=== PATIENT | male | born 1995 | race Caucasian/White ===

== ENCOUNTER 2020-03-29 08:35 | Emergency (ER) | payer BC, SELFPAY ==
--- OUTSIDE RECORDS SUMMARY | 2020-03-29 08:57 | XMS REPORT | Continuity of Care Document ---
:1995 Author Organization [facility] t Address [address] [place] [address] Dr. Calvillo. [address] [place] [address] Care Team Providers Name Role Phone Arnoldo BARRERA Attending Clinician 2, Lab Attending Clinician Unavailable Problems This patient has no known problems. Allergies, Adverse Reactions, Alerts This patient has no known allergies or adverse reactions. Medications This patient has no known medications. Procedures This patient has no known procedures. 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
--- OUTSIDE RECORDS SUMMARY | 2020-03-29 08:57 | XMS REPORT | Summary of Care ---
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 tabletIndications: STD exposure documented as of this encounter (statuses as of 02/19/2020) Active Problems Not on filedocumented as of this encounter (statuses as of 02/19/2020) Social History Tobacco Use Types Packs/Day Years Used Date Never Smoker Smokeless Tobacco: Current User Alcohol Use Drinks/Week oz/Week Comments Yes 12 Cans of beer 12.0 Sex Assigned at Date Recorded Not on file COVID-19 Exposure Response Date Recorded In the last month, have you been in contact with No / Unsure 02/19/2020 11:11 AM CDT someone who was confirmed or suspected to have Coronavirus / COVID-19? documented as of this encounter Last Filed Vital Signs Not on filedocumented in this encounter Nursing Notes Florina Randolph - 02/19/2020 11:30 AM CDT Venipuncture collection performed by clean technique on the right anticubitus. Total of 1 attempts were made. Slight pressure and a bandage/dressing were applied to the site(s). The patient experiencedno complications. The following specimens were processed according to instructions and sent to [facility] laboratories per lab order on 02/19/20: LT BLUE SST 1 RED 1 LAV PPT DK GREEN (LiHep) DK GREEN (SodH) LLAMAS DK BLUE (K2) DK BLUE (S) ACD Blood Culture NIPT/NTD Patient has been identified by name and was provided with cup, antiseptic towelette, and clean catchinstructions. 2 urine specimen(s) sent. Unpreserved 2 Urine Culture Aptima tube Other urine documented in this encounter Plan of Treatment Date Type Specialty Care Team Description 04/01/2020 Office Visit Family Medicine Carson Mclaughlin MD [address] [place] [address] [phone] Name Type Priority Associated Diagnoses Date/Ti me ADC OR MIGEL ONLY - RPR LAB Routine STD exposure 11:35 AM CDT GC & CHLAMYDIA AMPLIFIED LAB Routine STD exposure 12/2019 11:36 AM CDT ASSAY Health Maintenance Due Date Last Done Comments VARICELLA VACCINES (1 of 2 - 1998 2-dose childhood series) MENINGOCOCCAL B VACCINES (1 of 2 - 2007 Risk Bexsero 2-dose series) HPV VACCINES (1 - Male 2-dose 2008 series) DTaP,Tdap,and Td Vaccines (1 - 2016 Tdap) INFLUENZA VACCINE (#1) 2020 Depression Screening 02/18/2021 02/19/2020 MENINGOCOCCAL VACCINE Aged Out No longer eligible based on patient's age to complete this topic PNEUMOCOCCAL 0-64 YEARS COMBINED Aged Out No longer eligible based on SERIES patient's age to complete this topic documented as of this encounter Procedures Procedure Name Priority Date/Time Associated Comments Diagnosis URINALYSIS Routine 02/19/2020 11:36 AM Urethritis Results for this CDT procedure are i n the results section. HIV 1/2 AG-AB WITH Routine 02/19/2020 11:35 AM STD exposure Re sults for this REFLEX CDT procedure are i n the results section. documented in this encounter Results URINALYSIS (02/19/2020 11:36 AM CDT) Pathologist Sig nature APPEARANCE Clear Clear [facility] COLOR Yellow Yellow [facility] PH 7.0 4.8 - 8.0 [facility] SP GRAVITY 1.028 1.003 - 1.030 [facility] GLU U QUAL Normal Normal [facility] BLOOD Negative Negative [facility] KETONES 5 mg/dL (A) Negative [facility] PROTEIN Negative Negative [facility] UROBILIN 2.0 mg/dL (A) Normal [facility] BILIRUBIN Negative Negative [facility] NITRITE Negative Negative [facility] LEUK ELEANOR Negative Negative [facility] RBC/HPF <1 0 - 3 HPF [facility] WBC/HPF 1 0 - 5 HPF [facility] BACTERIA Negative Negative [facility] MUCOUS Slight (A) Negative LPF [facility] Specimen Urine - URINE, CLEAN CATCH Performing Organization Address [facility] Phone Number [facility] CLIA: [id number] [place], [place] [id number] LAB[address] HIV 1/2 AG-AB WITH REFLEX (02/19/2020 11:35 AM CDT) Pathologist Sig nature HIV 1/2 Ag-Ab with Negative Negative [facility] Reflex [facility] HIV Semi-quantitative 0.10 [facility] Specimen Blood Narrative Performed At Non-reactive for HIV-1 antigen and HIV-1/HIV-2 [facility] antibodies. No laboratory evidence of HIV infection. Repeat in 2-4 weeks if acute HIV infection is suspected. Performing Organization Address City[facility] Phone Number [facility] CLIA: [id number] [place] [address] documented in this encounter Visit Diagnoses Diagnosis STD exposure Urethritis Urethritis, unspecified documented in this encounter Additional Health Concerns Infection Onset Date Last Indicated Resolved Time COVID-19 Confirmed 02/05/2020 02/05/2020 documented as of this encounter Insurance Payer Benefit Plan / Subscriber ID Effective Dates Phone Addre ss Type Group [facility] [id number] 2019-Yisel O/ PPO/[facility] PPO t S documented as of this encounter
--- OUTSIDE RECORDS SUMMARY | 2020-03-29 08:57 | XMS REPORT | Summary of Care ---
:1995 Author Organization [facility] Address [address] [place] [address] Care Team Providers Name Role Phone Unavailable Primary Care Provider Unavailable Reason for Visit Reason Comments Results Encounter Details Date Type Department Care Team Description 02/06/2020 Telephone [facility] Cale Stoner MD Results 301 [facility] 301 [place] [address] [place], [place] [id number] Allergies No Known Allergiesdocumented as of this encounter (statuses as of 02/06/2020) Medications No known medicationsdocumented as of this encounter (statuses as of 02/06/2020) Active Problems Not on filedocumented as of this encounter (statuses as of 02/06/2020) Social History Tobacco Use Types Packs/Day Years Used Date Never Smoker Smokeless Tobacco: Current User Alcohol Use Drinks/Week oz/Week Comments Yes 12 Cans of beer 12.0 Sex Assigned at Date Recorded Not on file Job Start Date Occupation Industry Not on file Not on file Not on file Travel History Travel Start Travel End No recent travel history available. documented as of this encounter Last Filed Vital Signs Not on filedocumented in this encounter Plan of Treatment Health Maintenance Due Date Last Done Comments VARICELLA VACCINES (1 of 2 - 2-dose 1998 childhood series) MENINGOCOCCAL B VACCINES (1 of 2 - 2007 Risk Bexsero 2-dose series) DTaP,Tdap,and Td Vaccines (1 - 2008 Tdap) Depression Screening 2009 INFLUENZA VACCINE (#1) 2020 HPV VACCINES Aged Out No longer eligib le based on patient's age to complete this topic MENINGOCOCCAL VACCINE Aged Out No longer eligible based on patient's age to complete this topic PNEUMOCOCCAL 0-64 YEARS COMBINED Aged Out No longer eligible based on SERIES patient's age to complete this topic documented as of this encounter Results Not on filedocumented in this encounter Additional Health Concerns Infection Onset Date Last Indicated Resolved Time COVID-19 Rule Out 02/05/2020 02/05/2020 02/06/2020 2: 22 PM CDT COVID-19 Confirmed 02/05/2020 02/05/2020 documented as of this encounter Insurance Payer Benefit Plan / Subscriber ID Effective Dates Phone Addre ss Type Group [facility] [id number] 2019-Yisel O/ PPO/[facility] PPO t S documented as of this encounter
--- OUTSIDE RECORDS SUMMARY | 2020-03-29 08:57 | XMS REPORT | Summary of Care ---
:1995 Author Organization [facility] Address [address] [place] [address] Care Team Providers Name Role Phone Unavailable Primary Care Provider Unavailable Reason for Visit Reason Comments Exposure Encounter Details Date Type Department Care Team Description 02/05/2020 Laboratory Only [facility] Family Chele Land, GIN OPERATOR [address] [place] [phone] Suspected Covid-19 [facility], Adc Fam Pob I Virus Infection [address] [place] [address] (Primary D x) [place] [address] Allergies No Known Allergiesdocumented as of this encounter (statuses as of 02/05/2020) Medications No known medicationsdocumented as of this encounter (statuses as of 02/05/2020) Active Problems Not on filedocumented as of this encounter (statuses as of 02/05/2020) Social History Tobacco Use Types Packs/Day Years [...] filedocumented in this encounter Plan of Treatment Name Type Priority Associated Diagnoses Order S chedule COVID-19 (PCR MOLECULAR LAB Routine Suspected Covid-1 9 Virus Expected: 02/05/2020, TESTING) Infection Expires: 2020 Health Maintenance Due Date Last Done Comments [...] Results Not on filedocumented in this encounter Visit Diagnoses Diagnosis Suspected Covid-19 Virus Infection - Olive umana documented in this encounter Additional Health Concerns Infection Onset Date Last Indicated Resolved Time COVID-19 Rule Out 02/05/2020 02/05/2020 documented as of this encounter Insurance Payer Benefit Plan / Subscriber ID Effective Dates Phone Addre ss Type Group [facility] [id number] [facility] P[facility] t S documented as of this encounter
--- OUTSIDE RECORDS SUMMARY | 2020-03-29 08:57 | XMS REPORT | Summary of Care ---
:1995 Author Organization [facility] Address [address] [place] [address] Care Team Providers Name Role Phone Carson Mclaughlin MD Primary Care Provider Reason for Visit Reason Comments Results Encounter Details Date Type Department Care Team Description 02/23/2020 Telephone [facility] Family Medicine Carson Mitchell MD Results - [address] [place] [address] [place] [address] [phone] Allergies No Known Allergiesdocumented as of this encounter (statuses as of 02/23/2020) Medications Medication Sig Dispensed Refills Start Date End Date Status azithromycin Take 4 tablets by 4 tablet 0 02/19/2020 Active (ZITHROMAX) 500 mg mouth daily. tabletIndications: STD exposure documented as of this encounter (statuses as of 02/23/2020) Active Problems Not on filedocumented as of this encounter (statuses as of 02/23/2020) Social History Tobacco Use Types Packs/Day Years [...] Signs Not on filedocumented in this encounter Miscellaneous Notes Telephone Encounter - Karlie Whitfield LVN - 02/23/2020 12:43 PM CDTPatient notified and verbalized understanding. elephone Encounter - Sera Fernandez - 02/23/2020 8:11 AM CDTPatient is calling and is requesting to speak to the nurse in regards to his test results, please call patient back in regards to this encounter. documented in this encounter Plan of Treatment Date Type Specialty Care Team Description 04/01/2020 Office Visit Family Medicine Carson Mclaughlin MD [address] [place] [phone] Health Maintenance Due Date Last Done Comments [...] Effective Dates Phone Addre ss Type Group [facility] [id number] 2019-Yisel HMO/ PPO/[facility] PPO t S documented as of this encounter
--- OUTSIDE RECORDS SUMMARY | 2020-03-29 08:57 | XMS REPORT | Summary of Care ---
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
--- OUTSIDE RECORDS SUMMARY | 2020-03-29 08:57 | XMS REPORT | Summary of Care ---
:1995 Author Organization [facility] - Health Address [address] [place] [address] Care Team Providers Name Role Phone Carson Mclaughlin MD Primary Care Provider Encounter Details Date Type Department Care Team Description 02/19/2020 Orders Only [facility] Doctor Unassigned, No 301 [facility] [place] [address] 301 [place] [address] Allergies No Known Allergiesdocumented as of this encounter (statuses as of 02/19/2020) Medications No known medicationsdocumented as of this [...] in contact with No / Unsure 02/19/2020 10:57 AM CDT someone who was confirmed or [...] VACCINES (1 - Male 2-dose 2008 series) Depression Screening 2009 DTaP,Tdap,and Td Vaccines (1 - 2016 Tdap) INFLUENZA VACCINE (#1) 2020 MENINGOCOCCAL VACCINE Aged Out No longer eligible based on patient's age to complete this topic PNEUMOCOCCAL 0-64 YEARS COMBINED Aged Out No longer eligible based on SERIES patient's age to complete this topic documented as of this encounter Procedures Procedure Name Priority Date/Time Associated Comments Diagnosis CONSENT TO CONTACT Routine 02/19/2020 11:01 AM Re sults for this FOR VOLUNTARY CDT procedure are in RESEARCH the results section. CONSENT/REFUSAL FOR Routine 02/19/2020 11:01 AM DIAGNOSIS AND CDT TREATMENT ASSIGNMENT OF Routine 02/19/2020 11:01 AM BENEFITS CDT documented in this encounter Results CONSENT TO CONTACT FOR VOLUNTARY RESEARCH (02/19/2020 11:01 AM CDT) Pathologist Sig nature Consent To Contact For Voluntary Yes HIM Research Specimen Performing Organization Address City/State/Zipcode Phone Number HIM documented in this encounter Additional Health Concerns Infection Onset Date Last Indicated Resolved Time COVID-19 Confirmed 02/05/2020 02/05/2020 documented as of this encounter Insurance Payer Benefit Plan / Subscriber ID Effective Dates Phone Addre ss Type Group [facility] [id number] 2019-iYsel HMO/ PPO/[facility] PPO t S documented as of this encounter
--- OUTSIDE RECORDS SUMMARY | 2020-03-29 08:57 | XMS REPORT | Summary of Care ---
:1995 Author Organization [facility] Address [address] [place] [address] Care Team Providers Name Role Phone Carson Mclaughlin MD Primary Care Provider Reason for Visit Reason Comments STD Testing exposure to chlamydia Encounter Details Date Type Department Care Team Description 02/19/2020 Office Visit [facility] Pediatric Lisseth Mclaughlin MD Urethritis (Primary Dx); and Adult Primary [address] [facility] STD expo [facility] [address] [place] [address], [address] [address] [place], [place] [phone] [address] [phone] Allergies No Known Allergiesdocumented as of this [...] of this encounter Last Filed Vital Signs Vital Sign Reading Time Taken Comments Blood Pressure 110/70 02/19/2020 11:04 AM CDT Pulse - - Temperature - - Respiratory Rate - - Oxygen Saturation - - Inhaled Oxygen Concentration - - Weight 100.2 kg (221 lb) 02/19/2020 11:04 AM CDT Height - - Body Mass Index - - documented in this encounter Progress Notes Carson Mclaughlin MD - 02/19/2020 11:00 AM CDT Cc: STD exposure Chief Complaint Patient presents with STD Testing exposure to chlamydia Shantanu Falcon is a 24 year old male. Here for std exposure Allergies Shantanu has No Known Allergies. Medications No outpatient medications prior to visit. No facility-administered medications prior to visit. Histories No past medical history on file. No past surgical history on file. Social History Socioeconomic History Marital status: Single Spouse name: Not on file Number of children: Not on file Years of education: Not on file Highest education level: Not on file Occupational History Not on file Social Needs Financial resource strain: Not on file Food insecurity Worry: Not on file Inability: Not on file Transportation needs Medical: Not on file Non-medical: Not on file Tobacco Use Smoking status: Never Smoker Smokeless tobacco: Current User Substance and Sexual Activity Alcohol use: Yes Alcohol/week: 12.0 standard drinks Types: 12 Cans of beer per week Drug use: No Sexual activity: Yes Partners: Female control/protection: None Lifestyle Physical activity Days per week: Not on file Minutes per session: Not on file Stress: Not on file Relationships Social connections Talks on phone: Not on file Gets together: Not on file Attends restorationism service: Not on file Active member of club or organization: Not on file Attends meetings of clubs or organizations: Not on file Relationship status: Not on file Intimate partner violence Fear of current or ex partner: Not on file Emotionally abused: Not on file Physically abused: Not on file Forced sexual activity: Not on file Other Topics Concern Not on file Social History Narrative Not on file Family History Problem Relation Age of Onset No Significant Medical Problems Mother No Significant Medical Problems Father Review of Systems Vital Signs BP 110/70 | Wt 221 lb (100.2 kg) Physical Exam Vitals signs reviewed. Constitutional: Appearance: Normal appearance. HENT: Head: Normocephalic and atraumatic. Nose: Nose normal. Mouth/Throat: Mouth: Mucous membranes are dry. Neck: Musculoskeletal: Normal range of motion. Cardiovascular: Rate and Rhythm: Normal rate and regular rhythm. Pulses: Normal pulses. Pulmonary: Effort: Pulmonary effort is normal. Breath sounds: Normal breath sounds. Musculoskeletal: Normal range of motion. Skin: General: Skin is warm. Neurological: Mental Status: He is alert. Assessment/Plan STD exposure, UA, assay, HIV, RPR This visit did not involve counseling and coordination that comprised more than 50% of the visit time. documented in this encounter Plan of Treatment Name Type Priority Associated Diagnoses Order S chedule ADC OR MIGEL ONLY - RPR LAB Routine STD exposure Ex pected: 02/19/2020, Expires: 2020 HIV 1/2 AG-AB WITH REFLEX LAB Routine STD exposure Ex pected: 02/19/2020, Expires: 2020 GC & CHLAMYDIA AMPLIFIED LAB Routine STD exposure Exp ected: 02/19/2020, ASSAY Expires: 2020 URINALYSIS LAB Routine Urethritis Expected: 02/18, Expires: 2020 Health Maintenance Due Date Last [...] filedocumented in this encounter Visit Diagnoses Diagnosis Urethritis - Primary Urethritis, unspecified STD exposure documented in this encounter Additional Health Concerns Infection Onset Date Last Indicated Resolved Time COVID-19 Confirmed 02/05/2020 02/05/2020 documented as of this encounter Insurance Payer Benefit Plan / Subscriber ID Effective Dates Phone Addre ss Type Group [facility] [id number] 2019-Yisel HMO/ PPO/[facility] PPO t S documented as of this encounter"
--- OUTSIDE RECORDS SUMMARY | 2020-03-29 08:57 | XMS REPORT | Summary of Care ---
:1995 Author Organization [facility] - Health Address [address] [place] [address] Care Team Providers Name Role Phone Unavailable Primary Care Provider Unavailable Encounter Details Date Type Department Care Team Description 02/05/2020 Letter (Out) [facility] [employer] Message s Doctor Unassigned, No [address] [facility] [place] [address] 301 [facility] [phone] [place] [address] Allergies No Known Allergiesdocumented as of this [...] 2020 HPV VACCINES Aged Out No longer [place] based on patient's age to complete this topic MENINGOCOCCAL VACCINE Aged Out No longer eligible based on patient's age to complete this topic PNEUMOCOCCAL 0-64 YEARS COMBINED Aged Out No longer eligible based on SERIES patient's age to complete this topic documented as of this encounter Results Not on filedocumented in this encounter Insurance Payer Benefit Plan / Subscriber ID Effective Phone Address T ype Group Dates [facility] [id number] 2014-Pre [phone] [place] [address] [place] PPO/POS sent [phone] [place] [address] [facility] [id number] Effective for HMO/PP O/ [facility] PPO all dates POS documented as of this encounter
--- OUTSIDE RECORDS SUMMARY | 2020-03-29 08:57 | XMS REPORT | Summary of Care ---
:1995 Author Organization [facility] Address [address] [place] [address] Care Team Providers Name Role Phone Carson Mclaughlin MD Primary Care Provider Reason for Visit Reason Comments STD Testing exposure to chlamydia Encounter Details Date Type Department Care Team Description 02/19/2020 Office Visit [facility] Pediatric Lisseth Mclaughlin MD Urethritis (Primary Dx); and Adult Primary [address] [facility] STD expo [facility] [address] [place] [place] [address], [address] [address] [place], [place] [phone] [address] [phone] Allergies No Known Allergiesdocumented as of this [...] file Gets together: Not on file Attends restorationist service: Not on file Active member of [...] Addre ss Type Group [facility] [id number] 2019-Yisel HMO/ PPO/[facility] PPO t S documented as of this encounter"
[2020-03-29 09:49] LABS: Absolute Lymphocytes (CBC) 1.2 K/uL (0.7-4.9); Hematocrit 42.6 % (39.6-49.0); Lymphocytes % 18.2 % (15.3-44.8); MPV 9.2 fL (7.6-11.3); RBC Red Blood Cell Count 4.82 M/uL (4.33-5.43)
[2020-03-29] MEDS ORDERED: NA CHLORIDE 0.9% 1,000 ML ONE (10:02)
[2020-03-29 10:15] LABS: ALT/SGPT 33 U/L (12-78); AST/SGOT 15 U/L (15-37); Albumin 3.9 g/dL (3.4-5.0); Alkaline Phosphatase 68 U/L (45-117); BUN Blood Urea Nitrogen 11 mg/dL (7-18); Bicarbonate 29 mmol/L (21-32); Bilirubin Direct 0.1 mg/dL (0-0.2); Bilirubin Total 0.4 mg/dL (0.2-1.0); Glucose Level 89 mg/dL (74-106); Magnesium 2.1 mg/dL (1.8-2.4); Protein, Total 7.5 g/dL (6.4-8.2); Sodium Level 140 mmol/L (136-145); Troponin (Emerg Dept Use Only) < 0.02 ng/mL (0.0-0.045)
--- NOTE | 2020-03-29 10:44 | RAD REPORT ---
EXAM DESCRIPTION: Jocelyne Single View03/29/2020 10:04 am CLINICAL HISTORY: Palpitations COMPARISON: none FINDINGS: The lungs appear clear of acute infiltrate. The heart is normal size IMPRESSION: No acute abnormalities displayed
[2020-03-29 10:51] LABS: Urine Blood NEGATIVE (NEG); Urine Glucose NEGATIVE (NEG); Urine Protein NEGATIVE (NEG); Urine pH 7.5 (5.0-7.0)
--- NOTE | 2020-03-29 10:58 | EDPHYS ---
Physician Documentation [facility] Name: Shantanu Falcon Age: 24 yrs Sex: Male : 1995 Arrival Date: 03/29/2020 Time: 08:36 Bed 20 Private MD: Carson Mclaughlin S ED Physician Nicho Issa HPI: 03/29 10:29 This 24 yrs old Male presents to ER via Ambulatory with complaints of pm1 Palpitations. 10:29 The patient presents with a history of heart racing. Context: The symptoms occur at pm1 rest. 10:29 Onset: The symptoms/episode began/occurred 1 week(s) ago. Duration: The patient or pm1 guardian reports multiple episodes. Modifying factors: The symptoms are aggravated by nothing. The symptoms are alleviated by nothing. Associated signs and symptoms: Pertinent positives: tunnel vision with palpitations, Pertinent negatives: chest pain, cough, fever, SOB. Severity of symptoms: in the emergency department the symptoms have resolved. The patient has not experienced similar symptoms in the past. Patient drinks multiple energy drinks daily. Historical: - Allergies: 09:00 No Known Allergies; iw - Home Meds: 09:00 None [Active]; iw - PMHx: 09:00 None; iw - PSHx: 09:00 Knee surgery; elbow surgery; iw - Immunization history:: Adult Immunizations not up to date. - Social history:: Smoking status: Smoking status: Reported history of juuling and/or vaping. ROS: 10:29 Constitutional: Negative for fever, chills, and weight loss. pm1 10:29 Respiratory: Negative for shortness of breath, cough, wheezing, and pleuritic chest pain, Abdomen/GI: Negative for abdominal pain, nausea, vomiting, diarrhea, and constipation, Back: Negative for injury and pain, MS/Extremity: Negative for injury and deformity, Skin: Negative for injury, rash, and discoloration, Neuro: Negative for headache, weakness, numbness, tingling, and seizure. 10:29 Cardiovascular: Positive for palpitations, Negative for chest pain, edema. Exam: 10:29 Constitutional: This is a well developed, well nourished patient who is awake, alert, pm1 and in no acute distress. Head/Face: Normocephalic, atraumatic. Neck: Trachea midline, no thyromegaly or masses palpated, and no cervical lymphadenopathy. Supple, full range of motion without nuchal rigidity, or vertebral point tenderness. No Meningismus. Chest/axilla: Normal chest wall appearance and motion. Nontender with no deformity. No lesions are appreciated. Cardiovascular: Regular rate and rhythm with a normal S1 and S2. No gallops, murmurs, or rubs. Normal PMI, no JVD. No pulse deficits. Respiratory: Lungs have equal breath sounds bilaterally, clear to auscultation and percussion. No rales, rhonchi or wheezes noted. No increased work of breathing, no retractions or nasal flaring. Abdomen/GI: Soft, non-tender, with normal bowel sounds. No distension or tympany. No guarding or rebound. No evidence of tenderness throughout. Back: No spinal tenderness. No costovertebral tenderness. Full range of motion. Skin: Warm, dry with normal turgor. Normal color with no rashes, no lesions, and no evidence of cellulitis. MS/ Extremity: Pulses equal, no cyanosis. Neurovascular intact. Full, normal range of motion. 10:29 Neuro: Exam negative for acute changes, Orientation: is normal, Motor: moves all fours. Vital Signs: 08:57 BP 118 / 74; Pulse 68; Resp 16; Temp 98.3(TE); Pulse Ox 98% on R/A; Weight 99.79 kg; iw Height 6 ft. 2 in. (187.96 cm); 11:34 BP 108 / 70 Supine; Pulse 58; Resp 16; Pulse Ox 98% on R/A; mh5 11:37 BP 115 / 75 Sitting; Pulse 56; Resp 20; Pulse Ox 99% on R/A; mh5 11:39 BP 114 / 75 Standing; Pulse 72; Resp 16; Pulse Ox 99% on R/A; aa5 08:57 Body Mass Index 28.25 (99.79 kg, 187.96 cm) iw MDM: 09:06 Patient medically screened. pm1 10:57 Data reviewed: vital signs. Data interpreted: Pulse oximetry: on room air is 98 %. pm1 Interpretation: normal. Counseling: I had a detailed discussion with the patient and/or guardian regarding: the historical points, exam findings, and any diagnostic results supporting the discharge/admit diagnosis, lab results, radiology results, the need for outpatient follow up, a dielectric machine operator, a family practitioner, for holter monitor and further evaluation and treatment. 03/29 09:19 Order name: Basic Metabolic Panel; Complete Time: 10:17 pm03/29 09:19 Order name: CBC with Diff; Complete Time: 10:08 pm03/29 09:19 Order name: LFT's; Complete Time: 10:17 pm03/29 09:19 Order name: Magnesium; Complete Time: 10:17 pm03/29 09:19 Order name: Troponin (emerg Dept Use Only); Complete Time: 10:17 pm03/29 09:19 Order name: UDS pm1 03/29 09:19 Order name: XRAY Chest (1 view); Complete Time: 10:51 pm03/29 09:19 Order name: EKG; Complete Time: 09:20 pm03/29 09:19 Order name: Cardiac monitoring; Complete Time: 09:29 pm03/29 09:19 Order name: EKG - Nurse/Tech; Complete Time: 09:29 03/29 09:19 Order name: TSH; Complete Time: 10:17 pm03/29 10:22 Order name: Urine Dipstick--Ancillary (enter results); Complete Time: 10:51 bd 03/29 10:22 Order name: Urine Dipstick--Ancillary (enter results) bd 03/29 09:19 Order name: IV Saline Lock; Complete Time: 10:18 pm03/29 09:19 Order name: Labs collected and sent; Complete Time: 10:18 pm03/29 09:19 Order name: O2 Per Protocol; Complete Time: 09:29 03/29 09:19 Order name: O2 Sat Monitoring; Complete Time: 09:29 pm03/29 09:19 Order name: Urine Dipstick-Ancillary (obtain specimen); Complete Time: 10:17 pm03/29 09:35 Order name: Orthostatic Blood Pressure; Complete Time: 11:37 pm1 Administered Medications: 10:00 Drug: NS 0.9% 1000 ml Route: IV; Rate: 1000 ml; Site: left antecubital; aa5 11:37 Follow up: IV Status: Completed infusion; IV Intake: 1000ml aa5 Disposition: 03/30 08:17 Co-signature as Attending Physician, Nicho Issa MD I agree with the assessment and sarah plan of care. Disposition: 03/29/20 10:58 Discharged to Home. Impression: Palpitations. - Condition is Stable. - Discharge Instructions: Palpitations. - Medication Reconciliation Form, Thank You Letter, Antibiotic Education, Prescription Opioid Use, Work release form form. - Follow up: Emergency Department; When: As needed; Reason: Worsening of condition. Follow up: Private Physician; When: 2 - 3 days; Reason: Recheck today's complaints, Continuance of care, Re-evaluation by your physician. - Problem is new. - Symptoms have improved. Signatures: Dispatcher [employer] EDIL Nicho Issa MD MD cha Williams, Irene, RN RN Marie Bonilla RN RN aa5 Jere West, SUPERVISOR TESTING SUPERVISOR TESTING pm1 Alejandro, Coral RN RN ca1 Corrections: (The following items were deleted from the chart) 03/29 11:46 10:58 03/29/2020 10:58 Discharged to Home. Impression: Palpitations. Condition is ca1 Stable. Forms are Medication Reconciliation Form, Thank You Letter, Antibiotic Education, Prescription Opioid Use. Follow up: Emergency Department; When: As needed; Reason: Worsening of condition. Follow up: Private Physician; When: 2 - 3 days; Reason: Recheck today's complaints, Continuance of care, Re-evaluation by your physician. Problem is new. Symptoms have improved. pm1
--- NOTE | 2020-03-29 10:58 | ER ---
Nurse's Notes [facility] Name: Shantanu Falcon Age: 24 yrs Sex: Male : 1995 Arrival Date: 03/29/2020 Time: 08:36 Bed 20 Private MD: Carson Mclaughlin S Diagnosis: Palpitations Presentation: 03/29 08:57 Chief complaint: Patient states: past couple days feeling like he's gonna pass out, iw gets blurry vision and his heart starts pounding that lasts 30 minutes to an hour, right now he just feels shaky, drinks 1-2 energy drinks per day and drinks heavily on the weekends. Coronavirus screen: At this time, the client does not indicate any symptoms associated with coronavirus-19. Ebola Screen: Patient negative for fever greater than or equal to 101.5 degrees Fahrenheit, and additional compatible Ebola Virus Disease symptoms Patient denies exposure to infectious person. Patient denies travel to an Ebola-affected area in the 21 days before illness onset. No symptoms or risks identified at this time. Initial Sepsis Screen: Does the patient meet any 2 criteria? No. Patient's initial sepsis screen is negative. Does the patient have a suspected source of infection? No. Patient's initial sepsis screen is negative. Risk Assessment: Do you want to hurt yourself or someone else? Patient reports no desire to harm self or others. Onset of symptoms was March 26, 2020. 08:57 Method Of Arrival: Ambulatory iw 08:57 Acuity: YANA 3 iw Historical: - Allergies: 09:00 No Known Allergies; iw - Home Meds: 09:00 None [Active]; iw - PMHx: 09:00 None; iw - PSHx: 09:00 Knee surgery; elbow surgery; iw - Immunization history:: Adult Immunizations not up to date. - Social history:: Smoking status: Smoking status: Reported history of juuling and/or vaping. Screenin:20 Abuse screen: Denies threats or abuse. Nutritional screening: No deficits noted. aa5 Tuberculosis screening: No symptoms or risk factors identified. Fall Risk None identified. Assessment: 09:20 General: Appears comfortable, Behavior is calm, cooperative. Pain: Denies pain. Neuro: aa5 Level of Consciousness is awake, alert, obeys commands, Oriented to person, place, time, situation, Printer Assistant are equal bilaterally Moves all extremities. Gait is steady, Speech is normal, Facial symmetry appears normal, Pupils are PERRLA. Cardiovascular: Reports lightheadedness, palpitations, Heart tones S1 S2 present Rhythm is regular. Respiratory: Airway is patent Respiratory effort is even, unlabored, Respiratory pattern is regular, symmetrical. GI: Abdomen is flat, non-distended, Bowel sounds present X 4 quads. Abd is soft and non tender X 4 quads. : No signs and/or symptoms were reported regarding the genitourinary system. EENT: No signs and/or symptoms were reported regarding the EENT system. Derm: Skin is pink, warm \T\ dry. Musculoskeletal: Range of motion: intact in all extremities. 10:15 Reassessment: Patient is alert, oriented x 3, equal unlabored respirations, skin aa5 warm/dry/pink. Pt ambulatory to restroom . 11:35 Reassessment: Kae laboratory tester states that instrument for UDS is down at this time, DENTAL HYGIENE INSTRUCTOR aa5 was notified and it's ok to d/c pt at this time. . 11:42 Reassessment: Patient appears in no apparent distress at this time. Patient is alert, ca1 oriented x 3, equal unlabored respirations, skin warm/dry/pink. Vital Signs: 08:57 BP 118 / 74; Pulse 68; Resp 16; Temp 98.3(TE); Pulse Ox 98% on R/A; Weight 99.79 kg; iw Height 6 ft. 2 in. (187.96 cm); 11:34 BP 108 / 70 Supine; Pulse 58; Resp 16; Pulse Ox 98% on R/A; mh5 11:37 BP 115 / 75 Sitting; Pulse 56; Resp 20; Pulse Ox 99% on R/A; mh5 11:39 BP 114 / 75 Standing; Pulse 72; Resp 16; Pulse Ox 99% on R/A; aa5 08:57 Body Mass Index 28.25 (99.79 kg, 187.96 cm) iw ED Course: 08:36 Patient arrived in ED. as 08:36 Carson Mclaughlin MD is Private Physician. as 08:59 Triage completed. iw 09:00 Marie Kinsey, NELL is Primary Nurse. aa5 09:00 Arm band placed on. iw 09:06 Jere West NP is PHCP. pm1 09:06 Nicho Issa MD is Attending Physician. pm1 09:45 Initial lab(s) drawn, by me, sent to lab. EKG done, by ED staff, reviewed by Nicho Issa MD. Inserted saline lock: 20 gauge in left antecubital area, using aseptic technique. Blood collected. 09:46 Patient has correct armband on for positive identification. Bed in low position. Call 5 light in reach. monitoring tech on. Pulse ox on. NIBP on. 10:04 XRAY Chest (1 view) In Process Unspecified. EDMS 10:15 Urine collected: clean catch specimen, clear, UDS sent to lab. aa5 11:42 IV discontinued, Pressure dressing applied. mh5 11:43 IV discontinued, intact, bleeding controlled, No redness/swelling at site. Pressure ca1 dressing applied. Administered Medications: 10:00 Drug: NS 0.9% 1000 ml Route: IV; Rate: 1000 ml; Site: left antecubital; aa5 11:37 Follow up: IV Status: Completed infusion; IV Intake: 1000ml aa5 Intake: 11:37 IV: 1000ml; Total: 1000ml. aa5 Outcome: 10:58 Discharge ordered by MD. pm1 11:43 Discharged to home ambulatory. ca1 11:43 Condition: stable 11:43 Discharge instructions given to patient, Instructed on discharge instructions, follow up and referral plans. Demonstrated understanding of instructions, follow-up care. 11:46 Patient left the ED. ca1 Signatures: Dispatcher [employer] EDAL Nataliia Harrison Irene, RN RN Marie Kinsey RN RN [facility] Jere West NP DENTAL HYGIENE INSTRUCTOR pm1 Vaishali Harrison [facility] Coral Allen RN RN ca1 Corrections: (The following items were deleted from the chart) 09:10 08:57 BP 118 / 74; Pulse 68bpm; Resp 16bpm; Pulse Ox 98% RA; 99.79 kg; Height 6 ft. 2 iw in.; BMI: 28.2; iw 11:43 11:43 IV discontinued, intact, bleeding controlled, No redness/swelling at site. ca1 ca1 13:04 11:39 BP 114 / 75 Standing; Pulse 72bpm; Resp 16bpm; Pulse Ox 9% RA; mh5 aa5
[2020-03-29 11:52] VITALS: TEMP 98.3
[2020-03-29 11:55] VITALS: BP 114/75; O2SAT 9
[2020-03-29 16:22] LABS: Barbiturates NEGATIVE (NEGATIVE); Benzodiazepines NEGATIVE (NEGATIVE); Cocaine NEGATIVE (NEGATIVE); METHAMPHETAM NEGATIVE (NEGATIVE); Methadone NEGATIVE (NEGATIVE); Opiates NEGATIVE (NEGATIVE); Phencyclidine NEGATIVE (NEGATIVE); THC Cannibis NEGATIVE (NEGATIVE)
--- NOTE | 2020-03-31 05:57 | EKG ---
Test Date: 2020-03-29 Test Time: 09:20:00 Emissions Inspector: PILAR MEASUREMENT RESULTS: Intervals: Rate: 56 OH: 166 QRSD: 106 QT: 394 QTc: 380 [place]: P: 44 OH: 166 QRS: 13 T: 20 INTERPRETIVE STATEMENTS: Sinus bradycardia with sinus arrhythmia Otherwise normal ECG No previous ECG available for comparison Electronically Signed On 03-31-20 05:50:52 CDT by Jose L Ty
== END 2020-03-29 11:46 | disposition home or self-care (01) ==
LOC: ER 08:35
DX: R00.2 Palpitations (principal)
CPT/HCPCS: 36415; 71045; 80048; 80076; 80307; 81003; 83735; 84443; 84484; 85025; 93005; 96360; 96361; 99284; J7030